=== PATIENT | female | born 1950 | race Caucasian/White ===

== ENCOUNTER 2016-08-19 08:00 | Emergency (ER) | payer OTHER ==
[~2016-08-19] VITALS: Ht 157.4 cm; Wt 67.1 kg
[~2016-08-19 08:00] MED LIST: BACTRIM DS 8001 TA1 PO; HYDROCODONE BIT1 T11 PO; IBU800 M1 PO; MOTRIN800 MG PO; PRILOSEC40 MG PO; PYRIDIUM200 MG PO
[2016-08-19] MEDS ORDERED: CENTRUM COMPLE1 EACH PO (08:08)
[2016-08-19] MEDS ORDERED: NAPROSYN500 MG PO (08:53)
[2016-08-19] MEDS ORDERED: TYLENOL325 M2 PO (08:53)
== END 2016-08-19 09:21 | disposition home or self-care (01) ==
LOC: ED 08:00
DX: S22.32XA Fracture of one rib, left side, initial encounter for closed fracture (principal); I70.90 Unspecified atherosclerosis; J43.1 Panlobular emphysema; J44.9 Chronic obstructive pulmonary disease, unspecified; F17.210 Nicotine dependence, cigarettes, uncomplicated; Z79.899 Other long term (current) drug therapy; Z71.6 Tobacco abuse counseling; X58.XXXA Exposure to other specified factors, initial encounter; Y93.9 Activity, unspecified; Y92.9 Unspecified place or not applicable; Y99.9 Unspecified external cause status

== ENCOUNTER 2019-05-02 08:05 | Emergency (ER) | payer OTHER ==
[~2019-05-02] VITALS: Ht 157.4 cm; Wt 55.3 kg
[~2019-05-02 08:05] MED LIST changes: +CENTRUM COMPLE1 EACH PO; +NAPROSYN500 MG PO; +TYLENOL325 M2 PO
[2019-05-02] MEDS ORDERED: Motrin,Rufen400 MG PO (11:04)
== END 2019-05-02 11:07 | disposition home or self-care (01) ==
LOC: ED 08:05
DX: S20.211A Contusion of right front wall of thorax, initial encounter (principal); J44.9 Chronic obstructive pulmonary disease, unspecified; F17.200 Nicotine dependence, unspecified, uncomplicated; Z90.49 Acquired absence of other specified parts of digestive tract; Z79.899 Other long term (current) drug therapy; X50.1XXA Overexertion from prolonged static or awkward postures, initial encounter; Y93.89 Activity, other specified; Y92.89 Other specified places as the place of occurrence of the external cause; Y99.9 Unspecified external cause status

== ENCOUNTER 2019-07-28 09:50 | Emergency (ER) | payer MEDICARE, OTHER ==
[~2019-07-28] VITALS: Ht 157.4 cm; Wt 52.6 kg
[~2019-07-28 09:50] MED LIST changes: +Motrin,Rufen400 MG PO
[2019-07-28 10:55] LABS: BILIRUBIN NEGATIVE (NEGATIVE); BLOOD NEGATIVE (NEGATIVE); CLARITY SL CLOUDY (CLEAR); COLOR YELLOW (YELLOW); GLUCOSE NEGATIVE (NEGATIVE); KETONE NEGATIVE (NEGATIVE); LEUKO ESTERASE TRACE (NEGATIVE); NITRITE NEGATIVE (NEGATIVE); PH 5.5 (5.0-9.0); UROBILINOGEN 0.2 E.U./dl (0.2-1.0)
[2019-07-28 10:55] LABS: BASO % 0.3 % (0.0-1.0); EOS # 0.1 10*3/uL (0.0-0.4); HEMOGLOBIN 14.8 g/dl (12.0-16.0); LYMPH # 3.3 10*3/uL (1.3-4.4); LYMPH % 33.1 % (27.0-41.0); MEAN CELL VOLUME 95.3 fl (81.0-99.0); MEAN CORPUSCULAR HGB 31.4 pg (27.0-31.0); MEAN CORPUSCULAR HGB CONC 32.9 g/dl (33.0-37.0); MEAN PLATELET VOLUME 10.2 fl (9.6-12.3); MONO # 0.8 10*3/uL (0.1-1.0); MONO % 7.6 % (3.0-9.0); NEUT # 5.7 10*3/uL (2.3-7.9); NEUT % 57.7 % (47.0-73.0); PLATELET COUNT AUTOMATED 324 10*3/uL (130-400); RED BLOOD COUNT 4.72 10*6/uL (4.10-5.10); RED CELL DISTRI WIDTH 12.2 % (0-14.5); WHITE BLOOD COUNT 9.9 10*3/uL (4.8-10.8)
[2019-07-28 11:01] LABS: RBC 0-2 rbc/hpf (0-2)
[2019-07-28 11:07] LABS: ALBUMIN 3.2 gm/dl (3.1-4.5); ALKALINE PHOSPHATASE 86 U/L (45-117); BUN 4 mg/dl (7-24); CHLORIDE 97 mmol/L (98-107); CREATININE 0.72 mg/dL (0.55-1.02); LIPASE 17 U/L (73-393); POTASSIUM 4.2 mmol/L (3.5-5.1); SGOT/AST 22 IU/L (3-35); SGPT/ALT 21 U/L (12-78); SODIUM 134 mmol/L (136-145); TOTAL PROTEIN 7.2 gm/dL (6.4-8.2)
== END 2019-07-28 12:10 | disposition home or self-care (01) ==
LOC: ED 09:50
PROVIDERS: Emergency Medicine
DX: R19.7 Diarrhea, unspecified (principal); R11.0 Nausea; R05 Cough; J44.9 Chronic obstructive pulmonary disease, unspecified; K21.9 Gastro-esophageal reflux disease without esophagitis; K62.89 Other specified diseases of anus and rectum; F17.200 Nicotine dependence, unspecified, uncomplicated; Z79.899 Other long term (current) drug therapy

== ENCOUNTER → 2019-08-12 | Outpatient (CLI) | payer MEDICARE, OTHER | END | disposition home or self-care (01) | LOC: US 09:51 | DX: I70.0 Atherosclerosis of aorta (principal); Z90.49 Acquired absence of other specified parts of digestive tract ==

== ENCOUNTER 2019-09-19 09:13 | Emergency (ER) | payer MEDICARE, OTHER ==
[~2019-09-19] VITALS: Ht 157.4 cm; Wt 49.9 kg
== END 2019-09-19 10:36 | disposition home or self-care (01) ==
LOC: ED 09:13
DX: K62.3 Rectal prolapse (principal); K21.9 Gastro-esophageal reflux disease without esophagitis; F17.200 Nicotine dependence, unspecified, uncomplicated; Z79.899 Other long term (current) drug therapy; Z90.49 Acquired absence of other specified parts of digestive tract

== ENCOUNTER 2020-01-01 05:03 | Inpatient (IN) | payer MEDICARE, OTHER ==
[~2020-01-01] VITALS: Ht 157.4 cm; Wt 48.7 kg
[2020-01-01 05:06] VITALS: BP 159/82
[2020-01-01 05:34] LABS: BASO % 0.5 % (0.0-1.0); EOS % 0.5 % (1.0-4.0); HEMATOCRIT 37.8 % (37.0-47.0); LYMPH # 1.7 10*3/uL (1.3-4.4); LYMPH % 19.7 % (27.0-41.0); MEAN CELL VOLUME 89.8 fl (81.0-99.0); MEAN CORPUSCULAR HGB 32.3 pg (27.0-31.0); MEAN PLATELET VOLUME 8.7 fl (9.6-12.3); MONO # 0.7 10*3/uL (0.1-1.0); MONO % 8.5 % (3.0-9.0); NEUT % 70.3 % (47.0-73.0); PLATELET COUNT AUTOMATED 338 10*3/uL (130-400); RED BLOOD COUNT 4.21 10*6/uL (4.10-5.10); RED CELL DISTRI WIDTH 11.6 % (0-14.5); WHITE BLOOD COUNT 8.5 10*3/uL (4.8-10.8)
--- NOTE | 2020-01-01 05:39 | NUR ---
PT TO XRAY VIA WHEELCHAIR
--- NOTE | 2020-01-01 05:42 | NUR ---
PT BACK IN ROOM FROM XRAY. CALL LIGHT IN REACH. DENIES UNMET NEEDS. WILL CONTINUE TO MONITOR.
[2020-01-01 05:44] LABS: ACT PARTIAL THROMBO TIME 27.7 SECONDS (20.0-32.1); INTERNATIONAL NORM RATIO 0.9 (2.0-3.5)
[2020-01-01 05:50] LABS: ALBUMIN 3.1 gm/dl (3.1-4.5); ALKALINE PHOSPHATASE 100 U/L (45-117); BUN 5 mg/dl (7-24); CHLORIDE 84 mmol/L (98-107); CREATININE 0.62 mg/dL (0.55-1.02); LIPASE 13 U/L (73-393); POTASSIUM 4.3 mmol/L (3.5-5.1); SGOT/AST 22 IU/L (3-35); SGPT/ALT 20 U/L (12-78); TOTAL PROTEIN 6.3 gm/dL (6.4-8.2); TROPONIN I < 0.015 ng/ml (<0.045)
[2020-01-01 05:51] LABS: SODIUM 116 mmol/L (136-145)
[2020-01-01 06:44] VITALS: BP 169/76
[2020-01-01 07:00] LABS: BACTERIA 1+; BILIRUBIN NEGATIVE (NEGATIVE); BLOOD TRACE-INTACT (NEGATIVE); CLARITY SL CLOUDY (CLEAR); COLOR YELLOW (YELLOW); GLUCOSE NEGATIVE (NEGATIVE); KETONE NEGATIVE (NEGATIVE); LEUKO ESTERASE NEGATIVE (NEGATIVE); NITRITE NEGATIVE (NEGATIVE); PH 8.5 (5.0-9.0); UROBILINOGEN 0.2 E.U./dl (0.2-1.0); WBC 0-2 wbc/hpf (0-5)
--- NOTE | 2020-01-01 07:12 | NUR ---
REPORT FROM LEE ANN RAMOS.
--- NOTE | 2020-01-01 08:00 | NUR ---
1000ML NS DC'D AT THIS TIME PER VERBAL ORDER DR FONSECA. DR FONSECA STATES TO ONLY HANG THE 3% SALINE AT THIS TIME. VERIFIED BY DR FONSECA.
[2020-01-01 08:01] VITALS: BP 150/69
--- NOTE | 2020-01-01 08:14 | NUR ---
PATIENT TAKEN TO 5TH FLOOR AT THIS TIME BY THIS NURSE. PRESTON RN GIVEN BEDSIDE REPORT. NO CHANGE IN PATIENT STATUS. A&OX4.
[2020-01-01] MEDS ORDERED: ZOFRAN4 MG PO (08:35)
[2020-01-01] MEDS ORDERED: CARAFATE1 G1 PO (08:36)
--- NOTE | 2020-01-01 08:48 | NUR ---
[facility] under the services of CESAR Matthews MD with a diagnosis of ABDM. PAIN . Chief complaint is NAUSEA. Patient arrived via bed from ER. Monitor applied. Initial assessment completed. Vital signs taken and recorded. CESAR MATTHEWS MD notified of admission to the unit. Orders received. See assessment for past medical history, medications and allergies. Patient and/or family oriented to unit. [facility] visitation policy reviewed. Clothing/patient valuable form completed. PRESTON PATTON
--- NOTE | 2020-01-01 09:05 | NUR ---
DR. GARCIA NOTIFIED OF CONSULT.
--- NOTE | 2020-01-01 10:14 | NUR ---
NOTIFIED DR. GARCIA OF CRITICAL LAB RESULT.
--- NOTE | 2020-01-01 10:33 | NUR ---
NOTIFIED DR. GARCIA OF CRITICAL LAB VALUE.
[2020-01-01] MEDS ORDERED: TIMOLOL MALEATE5 M7 OD (11:13)
[2020-01-01] MEDS ORDERED: LATANOPROST2.5 ML OP (11:14)
[2020-01-01 12:00] VITALS: BP 137/61
[2020-01-01 12:46] LABS: THYROID STIM HORMONE (HS) 0.55 uIU/ml (0.358-4.75)
--- NOTE | 2020-01-01 14:13 | NUR ---
NOTIFIED DR. GARCIA OF CRITICAL LAB
[2020-01-01 16:00] VITALS: BP 138/62
--- NOTE | 2020-01-01 19:28 | NUR ---
24 HR chart check completed.
[2020-01-01 20:26] VITALS: BP 104/76
--- NOTE | 2020-01-01 21:00 | NUR ---
RESTING IN BED WITH NO ACUTE DISTRESS NOTED. RESPIRATIONS EASY. LUNGS DIMINISHED, CLEAR. PULSE OX 97% RA. DENIES N/V/D. IV FLUIDS INFUSING PER ORDER. CALL LIGHT WITHIN REACH. NO VOICED COMPLAINTS
--- NOTE | 2020-01-01 21:45 | NUR ---
DR GARCIA CALLED IN TO REVIEW LABS, NEW ORDERS RECEIVED
[2020-01-01 22:16] LABS: BUN 6 mg/dl (7-24); CHLORIDE 89 mmol/L (98-107); CREATININE 0.68 mg/dL (0.55-1.02); POTASSIUM 3.8 mmol/L (3.5-5.1); SODIUM 120 mmol/L (136-145)
--- NOTE | 2020-01-01 22:30 | NUR ---
DR GARCIA CONTACTED AT REQUEST, LABS REVIEWED. NEW ORDERS RECEIVED
--- NOTE | 2020-01-02 | NUR ---
SLEEPING. NO DISTRESS NOTED. RESPIRATIONS EASY. VSS. IV FLUIDS MAINTAINED. CALL LIGHT WITHIN REACH
[2020-01-02 00:25] VITALS: BP 115/40
[2020-01-02] MEDS ORDERED: OMEPRAZOLE MAGN20 MG PO (02:44)
[2020-01-02] MEDS ORDERED: MONTELUKAST SOD10 MG PO (02:44)
--- NOTE | 2020-01-02 06:00 | NUR ---
SLEPT THROUGHTOUT NIGHT WITH NO DISTRESS NOTED. RESPIRATIONS EASY. NO N/V/D. IV FLUIDS INFUSING PER ORDER. CALL LIGHT WITHIN REACH. NO VOICED COMPLAINTS THIS SHIFT
[2020-01-02 07:25] LABS: CHLORIDE 95 mmol/L (98-107); POTASSIUM 3.8 mmol/L (3.5-5.1); SODIUM 127 mmol/L (136-145)
[2020-01-02 07:29] LABS: BUN 4 mg/dl (7-24); CREATININE 0.47 mg/dL (0.55-1.02)
--- NOTE | 2020-01-02 07:55 | NUR ---
Patient resting in bed with no c/o discomfort. Respirations easy and regular. IVF infusing per orders. NPO for CT abdomen, currently drinking prep. Vital signs stable. No overt distress. Call light in reach. Will monitor. MEENU JACINTO
[2020-01-02 08:00] VITALS: BP 136/50
--- NOTE | 2020-01-02 10:00 | NUR ---
Directional Drill Operator in to talk to patient. Patient states lives at home alone with her 2 dogs. There are 0 steps in the home. Physician: Dr. Morgan [facility]: [facility] Home health services: none Patient's level of ADLs: INDEPENDENT Patient has working utilities: yes DME: none Follow-up physician's appointment after d/c: she prefers to make her own follow up appt after discharge Does patient want to access PORTAL?: no Discharge plan discussed with patient. She lives at home alone with her 2 dogs. She states her son lives a couple of blocks away. She is independent in her ADLs and ambulation. Discussed home health care services and she denies any home needs at this time. When medically stable she will be discharged to home. She states her brother from [place] will provide transportation on discharge. LUANN JESUS
[2020-01-02 12:00] VITALS: BP 124/58
[2020-01-02 16:00] VITALS: BP 108/43
--- NOTE | 2020-01-02 19:33 | NUR ---
24 HR chart check completed.
--- NOTE | 2020-01-02 20:30 | NUR ---
RESTING IN BED WATCHING TV WITH NO DISTRESS NOTED. RESPIRATIONS EASY. LUNGS DIMINISHED, CLEAR. PULSE OX 94% RA. CONSUMED DINNER WITHOUT DIFFICULTY, NO N/V. IV FLUIDS INFUSING PER ORDER. CALL LIGHT WITHIN REACH. NO VOICED COMPLAINTS
[2020-01-02 20:41] VITALS: BP 107/40
--- NOTE | 2020-01-03 | NUR ---
SLEEPING. NO DISTRESS NOTED. RESPIRATIONS EASY. VSS. IV FLUIDS MAINTAINED. CALL LIGHT WITHIN REACH
[2020-01-03 00:16] VITALS: BP 112/56
--- NOTE | 2020-01-03 03:00 | NUR ---
SLEEPING. IV FLUIDS MAINTAINED
--- NOTE | 2020-01-03 06:00 | NUR ---
SLEPT THROUGHOUT NIGHT WITH NO DISTRESS NOTED. RESPIRATIONS EASY. IV FLUIDS MAINTAINED. CALL LIGHT WITHIN REACH. NO VOICED COMPLAINTS THIS SHIFT
[2020-01-03 06:54] LABS: BASO % 0.5 % (0.0-1.0); EOS # 0.2 10*3/uL (0.0-0.4); HEMATOCRIT 32.4 % (37.0-47.0); LYMPH # 1.8 10*3/uL (1.3-4.4); LYMPH % 23.9 % (27.0-41.0); MEAN CELL VOLUME 93.6 fl (81.0-99.0); MEAN CORPUSCULAR HGB 31.5 pg (27.0-31.0); MEAN CORPUSCULAR HGB CONC 33.6 g/dl (33.0-37.0); MEAN PLATELET VOLUME 9.3 fl (9.6-12.3); MONO # 1.1 10*3/uL (0.1-1.0); MONO % 14.5 % (3.0-9.0); NEUT # 4.5 10*3/uL (2.3-7.9); NEUT % 58.7 % (47.0-73.0); PLATELET COUNT AUTOMATED 302 10*3/uL (130-400); RED BLOOD COUNT 3.46 10*6/uL (4.10-5.10); RED CELL DISTRI WIDTH 12.2 % (0-14.5); WHITE BLOOD COUNT 7.7 10*3/uL (4.8-10.8)
[2020-01-03 07:21] LABS: BUN 9 mg/dl (7-24); CHLORIDE 104 mmol/L (98-107); CREATININE 0.53 mg/dL (0.55-1.02); POTASSIUM 4.2 mmol/L (3.5-5.1); SODIUM 133 mmol/L (136-145)
[2020-01-03 08:00] VITALS: BP 136/52
--- NOTE | 2020-01-03 08:00 | NUR ---
PT RESTING IN BED. RESP-EASY AND REGULAR. IVF INFUSING WITH NO PROBLEM. NO C/O AT THIS TIME. CALL LIGHT IN REACH. SEE SHIFT ASSESSMENT.
--- NOTE | 2020-01-03 08:00 | NUR ---
Academic Support Assistant in to see patient. No new needs or request at this time. She denies any home needs. She is anxious to be discharged. When medically stable she will be discharged to home.
[2020-01-03 12:00] VITALS: BP 143/89
--- NOTE | 2020-01-03 12:30 | NUR ---
PT SITTING UP IN RECLINER EATING LUNCH. RESP-EASY AND REGULAR. CALL LIGHT IN REACH.
--- NOTE | 2020-01-03 15:00 | NUR ---
DR. GARCIA IN TO SEE PT. IVF CHANGED TO 60CC/HR.
--- NOTE | 2020-01-03 15:20 | NUR ---
DR. GARCIA IN TO SEE PT. DECREASE IVF STARTED PROTONIX IF NOT ON IT.
[2020-01-03 15:49] VITALS: BP 117/92
--- NOTE | 2020-01-03 16:00 | NUR ---
PT RESTING IN BED. NO C/O AT THIS TIME. IVF INFUSING WTIH NO PROBLEM. CALL LIGHT IN REACH. SEE SHIFT ASSESSMENT.
--- NOTE | 2020-01-03 18:08 | NUR ---
CALLED DR. PLATA REGARDING PT WANTING SOMETHING FOR DIARRHEA. ORDERED IMODIUM PO SEE EMAR. CALL LIGHT IN REACH.
[2020-01-03 20:00] VITALS: BP 133/56
--- NOTE | 2020-01-03 23:45 | NUR ---
ASSUMED CARE OF PATIENT. PATIENT RESTING IN BED, IV FLUIDS INFUSING PER ORDER. PATIENT ALERT AND ORIENTED WITH NO COMPLAINTS AT THIS TIME. PATIENT STATES SHE'S GONG TO TRY AND GET SOME SLEEP. CALL LIGHT WITHIN REACH, WILL MONITOR
[2020-01-04] VITALS: BP 123/55
--- NOTE | 2020-01-04 03:00 | NUR ---
PATIENT SLEEPING IN BED, NO DISTRESS NOTED. IV FUIDS CONTINUE TO INFUSE WITHOUT DIFFICULTY
--- NOTE | 2020-01-04 07:51 | NUR ---
07:25 DA NOT ADMINISTERED AT THIS TIME. PT REFUSED. RESPS REGULAR AND UNLABORED. BBSs CLEAR.
[2020-01-04 08:00] VITALS: BP 138/60
--- NOTE | 2020-01-04 08:50 | NUR ---
PT SITTING UP IN RECLINER CHAIR. TOLERATED ROUTINE MED WITH NO PROBLEM. NO C/O AT THIS TIME. CALL LIGHT IN REACH. SEE SHIFT ASSESSMENT.
--- NOTE | 2020-01-04 11:26 | NUR ---
11:26 DA NOT ADMINISTERED AT THIS TIME. PT REFUSED. PT OOB IN CHAIR. RESPS REGULAR AND UNLABORED. BBSs CLEAR.ON RA.
[2020-01-04 11:56] LABS: BASO # 0.1 10*3/uL (0.0-0.1); BASO % 0.4 % (0.0-1.0); EOS # 0.1 10*3/uL (0.0-0.4); HEMATOCRIT 35.4 % (37.0-47.0); LYMPH # 1.8 10*3/uL (1.3-4.4); LYMPH % 14.9 % (27.0-41.0); MEAN CELL VOLUME 94.4 fl (81.0-99.0); MEAN CORPUSCULAR HGB 31.7 pg (27.0-31.0); MEAN CORPUSCULAR HGB CONC 33.6 g/dl (33.0-37.0); MEAN PLATELET VOLUME 9.1 fl (9.6-12.3); MONO # 1.1 10*3/uL (0.1-1.0); MONO % 8.9 % (3.0-9.0); NEUT % 74.3 % (47.0-73.0); PLATELET COUNT AUTOMATED 322 10*3/uL (130-400); RED BLOOD COUNT 3.75 10*6/uL (4.10-5.10); RED CELL DISTRI WIDTH 12.2 % (0-14.5); WHITE BLOOD COUNT 12.1 10*3/uL (4.8-10.8)
[2020-01-04 12:00] VITALS: BP 132/61
--- NOTE | 2020-01-04 12:00 | NUR ---
PT ASSISTED TO BATHROOM AND BACK TO RECLINER. IVF INFUSING WITH NO PROBLEM. CALL LIGHT IN REACH.
[2020-01-04 12:29] LABS: BUN 6 mg/dl (7-24); CHLORIDE 105 mmol/L (98-107); CREATININE 0.62 mg/dL (0.55-1.02); POTASSIUM 3.6 mmol/L (3.5-5.1); SODIUM 135 mmol/L (136-145)
--- NOTE | 2020-01-04 14:00 | NUR ---
SITTING UP IN RECLINER CHAIR. IVF INFUSING WITH NO PROBLEM. CALL LIGHT IN REACH.
[2020-01-04] MEDS ORDERED: DOXYCYCLINE MO100 M1 PO (14:52)
[2020-01-04 16:00] VITALS: BP 142/62
--- NOTE | 2020-01-04 16:27 | NUR ---
Discharge instructions reviewed with patient/family. Patient receptive and verbalizes understanding. Follow-up care arranged. Written instructions given to patient/family. HEPLOCK REMOVED 2X2 APPLIED. MONITOR REMOVED. SHANKAR MERCEDES
--- NOTE | 2020-01-04 17:15 | NUR ---
PT ESCORTED VIA WHEELCHAIR FOR DISCHARGE TO ER FOR HER RIDE.
== END 2020-01-04 17:15 | disposition home or self-care (01) | DRG 641 ==
LOC: ED 05:03 → 5E 06:21 → EDHOLD 06:21 → 5E 08:02
PROVIDERS: Emergency Medicine Emergency Medical Services; Internal Medicine Nephrology; ADMIT Internal Medicine
DX: E87.1 Hypo-osmolality and hyponatremia (principal); K86.1 Other chronic pancreatitis; J20.9 Acute bronchitis, unspecified; R19.7 Diarrhea, unspecified; K21.9 Gastro-esophageal reflux disease without esophagitis; J43.9 Emphysema, unspecified; F17.210 Nicotine dependence, cigarettes, uncomplicated; K59.00 Constipation, unspecified; R79.89 Other specified abnormal findings of blood chemistry; E87.8 Other disorders of electrolyte and fluid balance, not elsewhere classified; Z71.6 Tobacco abuse counseling; Z79.899 Other long term (current) drug therapy; Z90.49 Acquired absence of other specified parts of digestive tract

== ENCOUNTER → 2020-01-17 | Outpatient (CLI) | payer MEDICARE, OTHER ==
[~2020-01-17] MED LIST changes: +CARAFATE1 G1 PO; +DOXYCYCLINE MO100 M1 PO; +DOXYCYCLINE100 M3 PO; +LANSOPRAZOLE30 MG PO; +LATANOPROST2.5 ML OP; +LISINOPRIL10 M1 PO; +MONTELUKAST SOD10 MG PO; +MUCINEX ER600 MG PO; +OMEPRAZOLE MAGN20 MG PO; +PREVACID15 MG PO; +PROTONIX40 MG PO; +SODIUM CHLORI1000 MG PO; +TIMOLOL MALEATE5 M7 OD; +VENT7GM INH; +ZOFRAN4 MG PO
[2020-01-17 10:31] LABS: BUN 6 mg/dl (7-24); CHLORIDE 86 mmol/L (98-107); CREATININE 0.57 mg/dL (0.55-1.02); POTASSIUM 4.4 mmol/L (3.5-5.1); SODIUM 120 mmol/L (136-145)
--- NOTE | 2020-01-17 10:40 | NUR ---
INFORMED CONSENT OBTAINED FOR LEXISCAN NUCLEAR STRESS TEST WITH DR. PLATA. RESTING EKG RBBB WITH A RESTING HR OF 81 WITH BP OF 118/60. LUNGS DIMINISHED BS WTIH SPO2 OF 97% ON ROOM AIR. PT COMPLETED A 1:00 LEXISCAN PROTOCOL RECEIVING LEXISCAN 0.4 MG IV OVER 10 SECONDS. HAD NO CHEST PAIN. DID C/O FEELING "DIZZY AND STOMACH TIGHTNESS" THAT RESOLVED IN RECOVERY. HAD NONDIAGNOSTIC ST. HAD A PEAK HR OF 97 WITH BP OF 84/40. HAD PT PERFORM LEG LIFTS AND DRINK COKE. REPEAT BP OF 80/46 THEN INCREASED TO BP OF 88/44. LAST RECOVERY HR OF 95 WITH BP OF 92/48. AWAITING SCANNING IN STABLE CONDITION.
== END | disposition home or self-care (01) ==
LOC: LAB 00:13 → CARD 00:13
PROVIDERS: Internal Medicine
DX: R07.89 Other chest pain (principal); E87.1 Hypo-osmolality and hyponatremia; R53.81 Other malaise

== ENCOUNTER 2020-03-12 11:35 | Inpatient (IN) | payer MEDICARE, OTHER ==
[~2020-03-12] VITALS: Ht 157.5 cm; Wt 48.6 kg
[2020-03-12 11:40] VITALS: BP 151/84
--- NOTE | 2020-03-12 12:04 | NUR ---
PT TO RADIOLOGY AT THIS TIME. WILL COMPLETE ASSESSMENT AND EKG UPON RETURN
[2020-03-12 12:32] LABS: BASO % 0.2 % (0.0-1.0); EOS % 0.4 % (1.0-4.0); HEMATOCRIT 44.3 % (37.0-47.0); LYMPH % 18.1 % (27.0-41.0); MEAN CELL VOLUME 89.3 fl (81.0-99.0); MEAN CORPUSCULAR HGB CONC 33.6 g/dl (33.0-37.0); MEAN PLATELET VOLUME 9.2 fl (9.6-12.3); MONO # 1.1 10*3/uL (0.1-1.0); MONO % 9.7 % (3.0-9.0); NEUT % 70.9 % (47.0-73.0); PLATELET COUNT AUTOMATED 361 10*3/uL (130-400); RED BLOOD COUNT 4.96 10*6/uL (4.10-5.10); RED CELL DISTRI WIDTH 12.1 % (0-14.5); WHITE BLOOD COUNT 11.3 10*3/uL (4.8-10.8)
[2020-03-12 12:43] LABS: ACT PARTIAL THROMBO TIME 24.2 SECONDS (20.0-32.1); INTERNATIONAL NORM RATIO 0.9 (2.0-3.5)
[2020-03-12 12:47] LABS: ALBUMIN 3.2 gm/dl (3.1-4.5); ALKALINE PHOSPHATASE 148 U/L (45-117); BUN 8 mg/dl (7-24); CHLORIDE 88 mmol/L (98-107); CREATININE 0.49 mg/dL (0.55-1.02); LIPASE 16 U/L (73-393); POTASSIUM 2.8 mmol/L (3.5-5.1); SGOT/AST 30 IU/L (3-35); SGPT/ALT 28 U/L (12-78); SODIUM 125 mmol/L (136-145); TOTAL PROTEIN 7.1 gm/dL (6.4-8.2); TROPONIN I 0.016 ng/ml (<0.045)
--- NOTE | 2020-03-12 14:05 | NUR ---
PT SEEMS TO HAVE INCREASED CONFUSION. ANA CANNON MADE AWARE OF THE SITUATION. MEDICATION INITIATED. CALL LIGHT WITHIN REACH.
[2020-03-12 15:08] VITALS: BP 159/86
--- NOTE | 2020-03-12 15:10 | NUR ---
PT TO BEDSIDE COMMODE. C/O BACK AND HIP PAIN. ANA GUTIERREZ QUALITY ASSURANCE COACH INFORMED.
--- NOTE | 2020-03-12 15:34 | NUR ---
RESPIRATORY THERAPIST STATES THAT PT IS OFF BIPAP MACHINE. O2 SAT AT THIS TIME IS 96. WILL CONTINUE TO MONITOR.
[2020-03-12 16:32] LABS: BILIRUBIN NEGATIVE (NEGATIVE); BLOOD NEGATIVE (NEGATIVE); COLOR STRAW (YELLOW); GLUCOSE NEGATIVE (NEGATIVE); KETONE NEGATIVE (NEGATIVE); SPECIFIC GRAVITY 1.005 (1.005-1.030)
[2020-03-12 16:33] LABS: LEUKO ESTERASE NEGATIVE (NEGATIVE); NITRITE NEGATIVE (NEGATIVE); UROBILINOGEN 0.2 E.U./dl (0.2-1.0)
[2020-03-12 16:42] LABS: CLARITY SL CLOUDY (CLEAR)
[2020-03-12 16:44] LABS: BACTERIA 2+; EPITHELIAL CELLS 16-20; MUCOUS 1+
[2020-03-12] MEDS ORDERED: TRAMADOL HCL50 MG PO (17:19)
[2020-03-12 17:20] VITALS: BP 170/88
[2020-03-12] MEDS ORDERED: SENNA8.6 MG PO (17:30)
--- NOTE | 2020-03-12 17:31 | NUR ---
ALREADY AWARE OF CONSULT AND IN TO SEE PATIENT.
--- NOTE | 2020-03-12 17:35 | NUR ---
A 69, admitted to 5E, under the services of CARMENCITA Gibson MD with a diagnosis of METABOLIC ENCEPHALOPATHY, HYPONATREMIA. Chief complaint is LOWER BACK PAIN. LEG AND FEET SWELLING. Patient arrived via stretcher from ER. Monitor applied. Initial assessment completed. Vital signs taken and recorded. DR. RADHA BARBOZA,CARMENCITA notified of admission to the unit. Orders received. See assessment for past medical history, medications and allergies. Patient and/or family oriented to unit. [address] visitation policy reviewed. Clothing/patient valuable form completed. DINH SINGH
--- NOTE | 2020-03-12 18:23 | NUR ---
PATIENTS BP CHECKED MANUAL 150/78.
--- NOTE | 2020-03-12 18:31 | NUR ---
MEDICATED WITH PRN NORCO FOR CO LOWER BACK PAIN RATED 9/10. WILL ASSESS EFFECTIVENES. CALL [facility] IN REACH.
--- NOTE | 2020-03-12 19:10 | NUR ---
REPORT RECEIVED. PT SITTING UP IN BED WATCHING TV AND EATING DINNER. NO COMPLAINTS VOICED.
[2020-03-12 20:00] VITALS: BP 136/70
--- NOTE | 2020-03-12 22:00 | NUR ---
PT WATCHING TV AT THIS TIME. VOICES NO COMPLAINTS. CALL LIGHT IN REACH
[2020-03-13] VITALS: BP 143/83
--- NOTE | 2020-03-13 01:00 | NUR ---
PT ASLEEP. CALL LIGHT IN REACH
[2020-03-13 06:46] LABS: BASO % 0.2 % (0.0-1.0); EOS # 0.1 10*3/uL (0.0-0.4); EOS % 0.8 % (1.0-4.0); HEMATOCRIT 36.2 % (37.0-47.0); LYMPH # 2.2 10*3/uL (1.3-4.4); LYMPH % 26.3 % (27.0-41.0); MEAN CELL VOLUME 91.2 fl (81.0-99.0); MEAN CORPUSCULAR HGB 30.5 pg (27.0-31.0); MEAN CORPUSCULAR HGB CONC 33.4 g/dl (33.0-37.0); MEAN PLATELET VOLUME 9.4 fl (9.6-12.3); MONO % 12.1 % (3.0-9.0); PLATELET COUNT AUTOMATED 311 10*3/uL (130-400); RED BLOOD COUNT 3.97 10*6/uL (4.10-5.10); RED CELL DISTRI WIDTH 12.5 % (0-14.5); WHITE BLOOD COUNT 8.4 10*3/uL (4.8-10.8)
[2020-03-13 07:21] LABS: CHLORIDE 95 mmol/L (98-107); POTASSIUM 3.5 mmol/L (3.5-5.1); SODIUM 131 mmol/L (136-145)
[2020-03-13 07:22] LABS: ACT PARTIAL THROMBO TIME 24.8 SECONDS (20.0-32.1); INTERNATIONAL NORM RATIO 0.9 (2.0-3.5)
[2020-03-13 07:44] LABS: ALBUMIN 2.8 gm/dl (3.1-4.5); ALKALINE PHOSPHATASE 115 U/L (45-117); BUN 9 mg/dl (7-24); CHOLESTEROL 224 mg/dL (<200); FREE T4 1.54 ng/dl (0.76-1.46); HDL CHOLESTEROL 75 mg/dl (40-60); LDL CHOLESTEROL 123 mg/dL (9-159); SGOT/AST 20 IU/L (3-35); SGPT/ALT 22 U/L (12-78); THYROID STIM HORMONE (HS) 0.718 uIU/ml (0.358-4.75); TOTAL PROTEIN 5.8 gm/dL (6.4-8.2); TRIGLYCERIDES 130 mg/dl (<150); URIC ACID 1.9 mg/dL (2.6-6.0); VLDL CHOLESTEROL 26 mg/dL (6-40)
--- NOTE | 2020-03-13 07:45 | NUR ---
SINDHU JARAMILLO [id number] Please refer to the physician's history and physical for past medical history, comorbid conditions, and allergies. Diagnosis: LOW BACK PAIN METABOLIC ENCEPHALOPATHY HYPONATREMI Erlin Score: 20,LOW OR NO RISK WOUND DESCRIPTIONS: This nurse along with with Ani Parisi RN evaluated patient for skin impairments. Wound Number: 1 Location of the wound: coccyx scar tissue noted at time of assessment. No open areas noted at time of assessment. No drainage noted at time of assessment. Surface the patient is resting on: Isoflex SKIN PREVENTION RECOMMENDATION: 1. Pressure redistribution support surface as appropriate 2. Elevate heels 3. Remove boots/TEDS every shift and reapply 4. Head of bed 30 degrees as tolerated 5. Assess nutrition and hydration 6. Manage moisture 7. Avoid the use of containment devices while in bed 8. Use absorptive products on surfaces limit layers of linens on bed 9. Turn and reposition every 1-2 hours in bed and every 1 hour in chair as tolerated 10. Weight shifts every 15 minutes while up in chair 11. Offloading with pillows or device to keep heels elevated off bed 12. Monitor skin at least every shift 13. Inspect under medical devices twice a day WOUND TREATMENT RECOMMENDATIONS: Wheelchair cushion when oob Cleanse coccyx with soap and water and apply hydraguard every shift and prn for soiling. Patient states she will continue to care for it when she returns home
[2020-03-13 08:00] VITALS: BP 136/74
--- NOTE | 2020-03-13 08:43 | NUR ---
PHYSICAL THERAPY Screen recieved, patient was admitted from home with hyponatremia, metabolic encepatolopathy, BLE edema. Please consult PT if patient declines from baseline funcitonal status. Thank you. Bhaskar Wilson SPT Mell Fitch PT
--- NOTE | 2020-03-13 09:00 | NUR ---
Imaging Manager in to talk to patient. Patient states lives at home alone with her 2 dogs. Her family checks in on her. There are 0 steps in the home. There is a chair lift. Physician: Dr. Morgan [facility]: [facility] Home health services: none Patient's level of ADLs: INDEPENDENT Patient has working utilities: yes DME: none Follow-up physician's appointment after d/c: she prefers to make her own follow up appt after discharge Does patient want to access PORTAL?: no Discharge plan discussed with patient. She lives at home alone with her 2 dogs and her family checking in on her. She has lived at home alone since her a year ago. She states her son lives a couple of blocks away. She is independent in her ADLs and ambulation. Discussed home health care services and she declines. Imaging Manager will continue to follow for any discharge planning needs. When medically stable she will be discharged to home. If her discharge is in the morning then he states her brother from [place] or if her discharge is in the evening then her daughter will provide transportation. LUANN JESUS
--- NOTE | 2020-03-13 09:08 | NUR ---
NORCO GIVEN FOR C/O BACIK PAIN. RATES 7/10 ON PAIN SCALE. WILL MONITOR.
[2020-03-13 12:00] VITALS: BP 125/62
[2020-03-13 13:19] LABS: VITAMIN D, 25-HYDROXY 40.1 ng/mL (30-100)
[2020-03-13 16:00] VITALS: BP 132/60
--- NOTE | 2020-03-13 16:14 | NUR ---
OT NOTE Nursing screen received and chart reviewed. Patient admitted from home for hyponatremia, hypokalemia, and metabolic encephalophy. If patient has a decline in ADLs, transfers, or mobility, please send OT orders. Thank you. Karen Randall, OTR/L
--- NOTE | 2020-03-13 19:10 | NUR ---
REPORT RECEIVED FROM PRESTON RAMOS. PT LYING IN BED WATCHING TV. NO S/S OF DISTRESS NOTED. CALL LIGHT IN REACH
[2020-03-13 20:00] VITALS: BP 132/63
--- NOTE | 2020-03-13 21:11 | NUR ---
NORCO GIVEN PER ORDER FOR COMPLAINTS OF RIGHT HIP PAIN. WILL MONITOR EFFECTIVENESS
--- NOTE | 2020-03-13 22:10 | NUR ---
PT STATES THAT THE PAIN PILL HELPED HER PAIN
[2020-03-13 23:45] VITALS: BP 138/58
--- NOTE | 2020-03-14 | NUR ---
SLEEPING AT THIS TIME
--- NOTE | 2020-03-14 03:00 | NUR ---
PT ASLEEP. RESPIRATIONS EASY AND UNLABORED. CALL LIGHT IN REACH
--- NOTE | 2020-03-14 03:53 | NUR ---
24 HR chart check completed.
--- NOTE | 2020-03-14 05:54 | NUR ---
PT ASLEEP AT THIS TIME. RESPIRATIONS ARE EASY AND UNLABORED. NO SIGNS/SYMPTOMS OF DISTRESS. CALL LIGHT WITHIN REACH
[2020-03-14 07:45] LABS: ALBUMIN 2.7 gm/dl (3.1-4.5); BUN 10 mg/dl (7-24); CHLORIDE 94 mmol/L (98-107); CREATININE 0.48 mg/dL (0.55-1.02); POTASSIUM 4.3 mmol/L (3.5-5.1); SGOT/AST 17 IU/L (3-35); SGPT/ALT 22 U/L (12-78); SODIUM 130 mmol/L (136-145)
[2020-03-14 07:46] LABS: ALKALINE PHOSPHATASE 127 U/L (45-117); TOTAL PROTEIN 6.1 gm/dL (6.4-8.2)
--- NOTE | 2020-03-14 07:57 | NUR ---
PT REQUESTED PO NORCO PER PRN ORDER FOR C/O RIGHT HIP PAIN. RATES PAIN 8/10. CHRONIC PAIN PER PT. WILL MONITOR EFFETIVENESS. CALL LIGHT WITHIN REACH.
[2020-03-14 08:00] VITALS: BP 166/78
--- NOTE | 2020-03-14 08:57 | NUR ---
NORCO RELIEVING PAIN PER PT. WILL CONTINUE TO MONITOR.
--- NOTE | 2020-03-14 09:09 | NUR ---
PATIENT REFUSING SCHEDULED MRI. MADE AWARE.
[2020-03-14 12:00] VITALS: BP 158/67
--- NOTE | 2020-03-14 12:17 | NUR ---
Production Machinist in to see patient. Discussed home health care services and she is agreeable. When provided with a list of agencies she chose [facility]. Dr. Thompson notified. When medically stable she will be discharged to home with [facility] services. She is anxious to be discharged today.
--- NOTE | 2020-03-14 12:34 | NUR ---
Faxed home health order to [facility]
--- NOTE | 2020-03-14 14:52 | NUR ---
PT MEDICATED WITH PO NORCO PER PRN ORDER FOR C/O RIGHT HIP PAIN. RATES PAIN 02/23. WILL MONITOR EFFECTIVENESS.
--- NOTE | 2020-03-14 15:19 | NUR ---
PATIENT OFF FLOOR FOR SCHEDULED U/S.
--- NOTE | 2020-03-14 15:52 | NUR ---
NORCO RELIEVING PAIN PER PT. WILL CONTINUE TO MONITOR.
[2020-03-14] MEDS ORDERED: SODIUM CHLORIDE1 GM PO (15:58)
[2020-03-14 16:00] VITALS: BP 144/59
--- NOTE | 2020-03-14 16:14 | NUR ---
PATIENT REFUSED DISCHARGE PHOTO TO [facility] DUE TO HIP PAIN BEING RELIEVED AT THIS TIME. SCAR TISSUE NOTED TO [facility]. NO OPEN AREAS.
--- NOTE | 2020-03-14 16:46 | NUR ---
Discharge instructions reviewed with patient. Patient receptive and verbalizes understanding. Follow-up care arranged. Written instructions given to patient. STACIE SANABRIA
== END 2020-03-14 20:31 | disposition home or self-care (01) | DRG 643 ==
LOC: ED 11:35 → EDHOLD 16:19 → 5E 16:19
PROVIDERS: Internal Medicine; Nurse Practitioner Family; ADMIT Internal Medicine Nephrology
DX: E22.2 Syndrome of inappropriate secretion of antidiuretic hormone (principal); G93.41 Metabolic encephalopathy; N39.0 Urinary tract infection, site not specified; K86.1 Other chronic pancreatitis; E44.1 Mild protein-calorie malnutrition; M48.56XA Collapsed vertebra, not elsewhere classified, lumbar region, initial encounter for fracture; Z68.1 Body mass index [BMI] 19.9 or less, adult; K21.9 Gastro-esophageal reflux disease without esophagitis; E87.6 Hypokalemia; R00.0 Tachycardia, unspecified; M54.5 Low back pain; D72.829 Elevated white blood cell count, unspecified; R73.9 Hyperglycemia, unspecified; E87.8 Other disorders of electrolyte and fluid balance, not elsewhere classified; J43.9 Emphysema, unspecified; I11.0 Hypertensive heart disease with heart failure; I50.9 Heart failure, unspecified; R74.8 Abnormal levels of other serum enzymes; F17.219 Nicotine dependence, cigarettes, with unspecified nicotine-induced disorders; G89.29 Other chronic pain; T39.395A Adverse effect of other nonsteroidal anti-inflammatory drugs [NSAID], initial encounter; Y92.89 Other specified places as the place of occurrence of the external cause; Z90.49 Acquired absence of other specified parts of digestive tract; Z82.49 Family history of ischemic heart disease and other diseases of the circulatory system; Z87.440 Personal history of urinary (tract) infections; Z79.899 Other long term (current) drug therapy